=== PATIENT | male | born 1985 ===

== ENCOUNTER 2021-03-22 08:00 | Outpatient (CLI) | payer OTHER | END 2021-03-22 08:30 | disposition home or self-care (01) | LOC: PPH VACUNA 08:00 | PROVIDERS: ATTEND Emergency Medicine Pediatric Emergency Medicine | DX: Z23 Encounter for immunization (principal) ==

== ENCOUNTER 2022-05-31 15:27 | Outpatient (CLI) | payer OTHER | END 2022-05-31 15:37 | disposition home or self-care (01) | LOC: PPH VACUNA 15:27 | PROVIDERS: ATTEND Emergency Medicine Pediatric Emergency Medicine | DX: Z23 Encounter for immunization (principal) ==